=== PATIENT | male | born 1995 | race Caucasian/White ===

== ENCOUNTER 2024-01-17 22:22 | Emergency (ER) | payer SELFPAY ==
[2024-01-17] VITALS (14 sets, daily range): BP systolic 98–134; BP diastolic 49–88; PULSE 69–100; RESP 10–21; TEMP 36.2; O2SAT 94–100
--- NOTE | 2024-01-17 22:30 | RT.EKG_ITS ---
APPROVED REPORT Exam: Resting ECG Reason for Exam: syncope Patient Location: E HR:92 bpm ECG Measurements Heart Rate 92 AXIS NM 133 P 56 QRSd 87 QRS 39 QT 340 T 24 QTc 420 Conclusion Sinus arrhythmia...V-rate 70-103, variation>10% appropriate intervals no ST segment or T wave abnormalities to suggest occlusive [place]
--- NOTE | 2024-01-17 22:43 | ED.GENADUL_ITS ---
Discharge Plan Disposition Patient Disposition: Home Condition: Good Discharge Details Clinical Impression: Seizure ED Provider: Anay Reilly Discharge Instructions Instructions: Seizures, Adult ED Additional Instructions: DO NOT DRIVE, SWIM, OR ENGAGE IN ANY ACTIVITY WHERE LOSING CONSCIOUSNESS CAN CAUSE INJURY OR TO YOURSELF OR SOMEONE ELSE Take your depakote as prescribed. Call your neurologist today to discuss your ED visit here and to schedule an appointment to follow up. Return to the emergency department for new or worsening symptoms. HPI General Mode of arrival: EMS . Date/Time Provider Initiated Documentation: 01/17/24 22:31 . Limitations to Documentation: no limitations . Information obtained by: patient and EMS . HPI Narrative: 28yo M with hx of seizures, on depakote, presenting via EMS for seizure. He has both abscence and generalized tonic-clonic seizures. EMS reports that pt was in the elevator when a bystander witnessed him to have generalized tonic clonic activity (unknown duration). Patient regained consciousness while in the elevator. Currently has mild headache, otherwise feels back to normal. States he missed several doses of depakote recently, unsure how many. Typically takes twice a day, did take this evening at 5pm but not this morning. Typical seizure frequency is generalized every few months, absence seizures more frequently unsure how often. No recent illness, head injuries, substance use, or other clear provoking factors. Otherwise in his usual state of health with no fevers, chills, rash, nausea, vomiting, abdominal pain, chest pain, shortness of breath, numbness, tingling, weakness, dysuria, hematuria, or other concerns. General Stated Complaint: Seizure GEOFFREY: 2 Review of Systems Narrative: see HPI Exam Narrative Exam Narrative: General: Alert, well appearing, well nourished, in no acute distress. Head: Normocephalic, atraumatic Neck: Trachea midline, ?Neck supple. ENT: ?MMM.? No oropharygeal lesions or exudate. Cardiac: ?RRR, no murmurs appreciated Resp: No respiratory distress. CTAB. Abd: ?Soft, non-distended, nontender : ?No suprapubic tenderness. No CVA tenderness. Extremities: ?No deformities.? No peripheral edema. Neuro: ? GCS 15.? PERRL.? EOMI.? Fluent speech, no dysarthria. Motor- 5/5 strength symmetric bilateral upper and lower extremities Sensation- ?Intact to light touch and symmetric multiple dermatomes including upper and lower extremities Coordination- No dysmetria on finger to nose Reflexes- 2/4 achilles & patellar, no clonus Gait/station: ?Normal stance.? No truncal ataxia. Steady gait with equal normal steps CRANIAL NERVES: II: Pupils equal and reactive, III, IV, : EOM intact, no gaze preference or deviation, no nystagmus. V: normal sensation in V1, V2, and V3 segments bilaterally VII: no asymmetry, no nasolabial fold flattening VIII: normal hearing to speech IX, X: normal palatal elevation, no uvular deviation XI: 5/5 head turn and 5/5 shoulder shrug bilaterally XII: midline tongue protrusion Course Vital Signs Vital signs: Vital Signs Temperature 36.2 C L 01/17/24 22:34 Pulse 100 H 01/17/24 22:34 Respiratory Rate 14 01/17/24 22:34 Blood Pressure 134/88 01/17/24 22:34 Pulse Oximetry 100 01/17/24 22:34 Temperature 36.2 C L 01/17/24 22:34 Temperature Source Skin 01/17/24 22:34 Pulse 100 H 01/17/24 22:34 Respiratory Rate 14 01/17/24 22:34 Respiratory Effort Normal 01/17/24 22:38 Respiratory Depth Normal 01/17/24 22:38 Respiratory Pattern Normal 01/17/24 22:38 Blood Pressure 134/88 01/17/24 22:34 Blood Pressure Position Sitting 01/17/24 22:34 Pulse Oximetry 100 01/17/24 22:34 Oxygen Delivery Method Room Air 01/17/24 22:34 Oxygen Flow Rate 0 01/17/24 22:34 Pain Level 0 01/17/24 22:34 Medical Decision Making 28yo M with hx of seizures, on depakote, presenting via EMS for seizure. Known seizure disorder (abscence and generalized tonic-clonic seizures) on depakote, reports multiple missed doses over the past several weeks. Denies any other provoking factors (head injury, illness). Alert on arrival, mild headache o therwise states he feels back to baseline. Normal neurologic exam. Will give keppra load and home dose depakote here. No indication for CT head or other imaging. EKG SR, appropriate intervals, no ST segment or T wave abnormalities to suggest occlusive [place]. Labs reviewed as below, CBC with leukocytosis (suspect w/t generalized seizure), CMP reassuring with no significant electrolyte abnormalities, does have metabolic acidosis also consistent with generalized seizure, Mg normal. UA not infected. Depakote level 23, subtheraputic. Consistent with breakthrough seizure 2/t to medication non-adherence. Observed in the ED for 5 hours overnight with no further episodes. Discharged home; discharge instructions and return precautions were reviewed with patient who verbalized understanding. All questions were answered and he is in full agreement with the plan. Lab Data Lab results reviewed: Yes I reviewed the patient's lab results. Labs: Laboratory Tests Range/Units 01/17/24 01/17/24 01/17/24 22:24 23:05 23:20 WBC (4.4-10.8) 10^3/uL 22.26 H RBC (4.36-5.78) 10^6/uL 4.71 Hgb (13.5-17.5) g/dL 13.7 Hct (40.0-50.0) % 42.9 MCV (80-95) fL 91 MCH (27.0-33.0) pg 29.1 MCHC (32.0-36.0) % 31.9 L RDW (11.8-14.1) % 13.2 Plt Count (130-400) 10^3/uL 420 H MPV (8.0-11.0) fL 9.2 Immature Gran % % 0.5 Neutrophils % % 78.2 Lymphocytes % % 16.9 Monocytes % % 4.1 Eosinophils % % 0.1 Basophils % % 0.2 Nucleated RBC % (0.0-0.3) % 0.0 Absolute Neutrophils (1.2-6.7) 10^3/uL 17.41 H Absolute Lymphocytes (1.2-3.4) 10^3/uL 3.76 H Absolute Monocytes (0.1-0.8) 10^3/uL 0.91 H Absolute Eosinophils (0.0-0.7) 10^3/uL 0.02 Absolute Basophils (0.0-0.2) 10^3/uL 0.04 Sodium (136-145) mmol/L 140 Potassium (3.5-5.1) mmol/L 4.1 Chloride (98-107) mmol/L 100 Carbon Dioxide (21.0-32.0) mmol/L 17.5 L Anion Gap (3-11) mmol/L 22.5 H BUN (7-18) mg/dL 6 L Creatinine (0.70-1.30) mg/dL 1.5 H Est GFR (CKD-EPI 2020) (mL/min/1.73m2) 65.03 Glucose (74-106) mg/dL 135 H Calcium (8.5-10.1) mg/dL 9.7 Magnesium (1.8-2.4) mg/dL 2.2 Total Bilirubin (0.2-1.0) mg/dL 0.13 L AST (15-37) U/L 17 ALT (16-63) U/L 20 Alkaline Phosphatase (46-116) U/L 106 Total Protein (6.4-8.2) g/dL 8.1 Albumin (3.4-5.0) g/dL 4.4 Urine Color (Yellow) Yellow Urine Clarity (Clear) Clear Urine pH (5-8) 5.5 Ur Specific [place] (1.005-1.025) 1.025 Urine Protein (Neg-Trace) mg/dL Trace Urine Ketones (Negative) mg/dL Negative Urine Blood (Negative) Trace-intact H Urine Nitrite (Negative) Negative Urine Bilirubin (Negative) Negative Urine Urobilinogen (Up to 0.2) mg/dL 0.2 Ur Leukocyte Esterase (Negative) Negative Urine RBC (0-2) HPF 0-2 Urine WBC (0-5) HPF Negative Ur Epithelial Cells (Negative) HPF Negative Urine Crystals (Negative) HPF Negative Urine Bacteria (Negative) HPF Negative Urine Casts (Negative) LPF 0-2 Hyaline Urine Mucus (Negative) Negative Ur Culture Indicated? No Urine Glucose (Negative) mg/dL Negative Valproic Acid ( - 150) ug/mL 23.2 Quality:SDOH Health Related Social Needs: No Data to Display PFSH All Active Problems (Updated 01/18/24 @ 01:31 by Anay Reilly MD) Seizure (Acute) Social History Smoking risk assessment performed?: No Housing: apartment Do you feel safe at home: Yes Do you feel safe in your relationship?: Yes
[2024-01-17 22:44] LABS: Abs Immature Grans 0.12 10^3/uL (0.0-0.06); Absolute Lymphocyte Count 3.76 10^3/uL (1.2-3.4); Absolute Monocyte Count 0.91 10^3/uL (0.1-0.8); Basophils % 0.2 %; Eosinophils % 0.1 %; HCT 42.9 % (40.0-50.0); HGB 13.7 g/dL (13.5-17.5); Immature Grans % 0.5 %; Lymphocytes % 16.9 %; MCH 29.1 pg (27.0-33.0); MCHC 31.9 % (32.0-36.0); MCV 91 fL (80-95); MPV 9.2 fL (8.0-11.0); Monocytes % 4.1 %; Neutrophils % 78.2 %; Platelet Count 420 10^3/uL (130-400); RBC 4.71 10^6/uL (4.36-5.78); RDW 13.2 % (11.8-14.1); RDW-SD 45.1 fL; WBC 22.26 10^3/uL (4.4-10.8)
[2024-01-17 22:46] LABS: Absolute Basophil Count 0.04 10^3/uL (0.0-0.2); Absolute Eosinophil Count 0.02 10^3/uL (0.0-0.7); Absolute Neutrophil Count 17.41 10^3/uL (1.2-6.7)
[2024-01-17] MEDS: levETIRAcetam 2,000 MG in Normal Saline 100 ML 400 MG IVPB (22:59)
[2024-01-17 23:02] LABS: Magnesium 2.2 mg/dL (1.8-2.4)
[2024-01-17 23:11] LABS: ALT 20 U/L (16-63); AST 17 U/L (15-37); Albumin 4.4 g/dL (3.4-5.0); Alkaline Phosphatase 106 U/L (46-116); Anion Gap 22.5 mmol/L (3-11); BUN 6 mg/dL (7-18); Bilirubin, Total 0.13 mg/dL (0.2-1.0); CO2 17.5 mmol/L (21.0-32.0); CREATININE 1.5 mg/dL (0.70-1.30); Calcium 9.7 mg/dL (8.5-10.1); Chloride 100 mmol/L (98-107); Estimated GFR 65.03 (mL/min/1.73m2); Glucose 135 mg/dL (74-106); Potassium 4.1 mmol/L (3.5-5.1); Sodium 140 mmol/L (136-145); Total Protein 8.1 g/dL (6.4-8.2)
[2024-01-17] MEDS: Divalproex Sodium 250 MG TAB.ER.24H 750 MG PO (23:23)
[2024-01-17 23:48] LABS: Bilirubin Negative (Negative); Blood Trace-intact (Negative); Clarity Clear (Clear); Glucose Negative (Negative); Ketones Negative (Negative); Leukocyte Esterase Negative (Negative); Nitrite Negative (Negative); Specific Gravity 1.025 (1.005-1.025); Urobilinogen 0.2 mg/dL (Up to 0.2); pH 5.5 (5-8)
[2024-01-18] VITALS: RESP 10; O2SAT 94
[2024-01-18 00:01] VITALS: BP 89/47; PULSE 67; RESP 10; O2SAT 95
[2024-01-18 00:02] LABS: Epithelial Cells Negative HPF (Negative); RBC 0-2 HPF (0-2); WBC Negative HPF (0-5)
[2024-01-18 00:03] LABS: Bacteria Negative HPF (Negative); C & S Indicated? No; Casts 0-2 Hyaline LPF (Negative); Crystals Negative HPF (Negative); Mucus Negative (Negative)
[2024-01-18 00:10] VITALS: RESP 10; O2SAT 94
[2024-01-18 00:12] LABS: VALPROIC ACID 23.2 ug/mL
[2024-01-18 00:17] VITALS: BP 116/87; PULSE 89; RESP 12
[2024-01-18 00:20] VITALS: RESP 12
[2024-01-18 03:45] VITALS: BP 131/72; RESP 16; TEMP 36.6; O2SAT 96
== END 2024-01-18 02:31 | disposition home or self-care (01) ==
LOC: ER 01-18 04:22
PROVIDERS: Emergency Provider Student in an Organized Health Care Education/Training Program
DX: R56.9 Unspecified convulsions (principal)
CPT/HCPCS: 36415; 80053; 93005; 96365; 99284; 80164; 81003; 81015; 83735; 85025; 93010; 99283; J1953